=== PATIENT | female | born 1975 | race Two or more races ===

== ENCOUNTER → 2025-04-01 | Outpatient (CLI) | payer OTHER, SELFPAY ==
[2025-04-01 09:47] LABS: Collection Type, Urine Clean Catch
[2025-04-01 10:19] LABS: Basophils # (Auto) 0.1 Thou/mm3 (0.0-0.2); Basophils % (Auto) 1 % (0-2.5); Eosinophils # (Auto) 0.1 Thou/mm3 (0.0-0.5); Eosinophils % (Auto) 2 % (0-10); Hematocrit 38.4 % (36.0-46.0); Hemoglobin 13.1 g/dL (12.0-16.0); Immature Granulocytes Auto 0.01 Thou/mm3 (0.00-0.00); Lymphocytes # (Auto) 1.9 Thou/mm3 (1.0-4.8); Lymphocytes % (Auto) 43 % (10-50); Mean Corpuscular HGB Conc 34.1 g/dl (31.0-37.0); Mean Corpuscular Hemoglobin 31.4 pg (25.0-35.0); Mean Corpuscular Volume 92 fL (80-100); Monocytes # (Auto) 0.5 Thou/mm3 (0.0-0.8); Monocytes % (Auto) 11 % (0-12); Neutrophils # (Auto) 1.8 Thou/mm3 (1.8-7.7); Neutrophils % (Auto) 42 % (37-80); Nucleated Red Blood Cell # 0.00 Thou/mm3 (0.00-0.00); Nucleated Red Blood Cell % 0 /100 WBC (0); Platelet Count 251 Thou/mm3 (140-440); RDW Standard Deviation 48.1 fL (36.4-46.3); Red Blood Count 4.17 Miln/mm3 (4.00-5.20); White Blood Count 4.4 Thou/mm3 (3.6-11.0)
[2025-04-01 10:27] LABS: Glucose Estimated Average 103 mg/dL (80-131); Hemoglobin A1C 5.2 % Hgb (4.8-6.0)
[2025-04-01 10:34] LABS: Bacteria,Urine Rare; Bilirubin,Urine Negative (Negative); Blood,Urine Negative (Negative); Clarity,Urine Clear (Clear/Hazy); Color,Urine Lt-Yellow (Lt Yel-Yel); Glucose, Urine Negative (Negative); Ketones,Urine Negative (Negative); Leukocyte Esterase,Urine Negative (Negative); Nitrite,Urine Negative (Negative); PH,Urine 6.5 (5.0-7.0); Protein,Urine Negative (Neg - Trace); RBC,Urine 1 /hpf (0-3); Specific Gravity,Urine 1.015 (1.001-1.035); Squamous Epithelial Cell,Urine 3 /hpf (0-5); Urobilinogen,Urine Negative mg/dL (0.0-1.0); WBC,Urine 3 /hpf (0-5)
[2025-04-01 10:35] LABS: Vitamin B12 565 pg/mL (211-911); Vitamin D 25 Hydroxy Total 44.6 ng/mL (7.3-40.2)
[2025-04-01 10:57] LABS: Alanine Aminotransferase 20 U/L (10-49); Albumin, Serum 4.3 gm/dL (3.5-5.0); Albumin/Globulin Ratio 1.9 (1.2-2.2); Alkaline Phosphatase 93 U/L (46-116); Anion Gap 13 (7-16); Aspartate Amino Transferase 21 U/L (0-34); BUN/Creatinine Ratio 15 Ratio (12-20); Bilirubin,Total 0.9 mg/dL (0.3-1.2); Blood Urea Nitrogen 15 mg/dL (9-23); Calcium 9.2 mg/dL (8.3-10.6); Calcium (Corrected) 9.2 mg/dL (8.5-10.1); Carbon Dioxide 27.6 mMol/L (20.0-31.0); Cardiac Risk Estimate 2.6 RATIO (3.7-5.6); Chloride 105 mMol/L (98-107); Cholesterol 168 mg/dL (132-200); Creatinine (Component) 1.0 mg/dL (0.6-1.3); Globulin 2.3 gm/dL (2.3-3.5); Glucose 97 mg/dL (74-106); HDL Cholesterol 65 mg/dL (40-60); LDL Cholesterol,Calculated 85 mg/dL (0-130); Osmolality,Calculated 291 (275-295); Potassium 4.4 mMol/L (3.4-5.1); Sodium 146 mMol/L (136-145); Thyroid Stimulating Hormone 2.79 uIU/mL (0.55-4.78); Total Protein 6.6 gm/dL (5.7-8.2); Triglycerides 88 mg/dL (30-150); Uric Acid 3.4 mg/dL (3.1-7.8); eGFR > 60 See Note
== END | disposition home or self-care (01) ==
LOC: COPL 09:01
PROVIDERS: PCP Internal Medicine; Referring Provider Internal Medicine; Visit Provider Internal Medicine
DX: Z00.00 Encounter for general adult medical examination without abnormal findings (principal)
CPT/HCPCS: 36415; 80053; 80061; 81001; 82306; 82607; 83036; 84443; 84550; 85025